=== PATIENT | female | born 1950 | race Two or more races ===

== ENCOUNTER 2016-07-06 15:38 | Emergency (ER) | payer OTHER ==
[~2016-07-06] VITALS: Ht 149.9 cm; Wt 49.9 kg
[2016-07-06 16:20] VITALS: BP 128/99
[2016-07-06] MEDS: ALBUTEROL FS 2.5 MG/3 ML VIAL.NEB CONTNEB ONE (19:10)
[2016-07-06] MEDS: IPRATROPIUM NEB FS 0.5 MG/2.5 ML AMPUL.NEB NEB ONE (19:10)
[2016-07-06] MEDS ORDERED: ALBUTEROL FS 2.5 MG/3 ML VIAL.NEB ONE (19:10)
[2016-07-06] MEDS ORDERED: IPRATROPIUM NEB FS 0.5 MG/2.5 ML AMPUL.NEB ONE (19:10)
[2016-07-06] MEDS ORDERED: DEXAMETHASONE SOD PHOSPHATE 10 MG/ML VIAL ONE (20:37)
[2016-07-06] MEDS: DEXAMETHASONE SOD PHOSPHATE 10 MG/ML VIAL IM ONE (20:42)
== END 2016-07-06 21:01 | disposition home or self-care (01) ==
LOC: ER 15:42
DX: J45.909 Unspecified asthma, uncomplicated (principal)
CPT/HCPCS: 71010; 93005; 94644; 96372; 99285; A4606; J1100; Z7610

== ENCOUNTER 2016-10-27 18:19 | Emergency (ER) | payer OTHER ==
[~2016-10-27] VITALS: Ht 160 cm; Wt 49.9 kg
[2016-10-27 18:26] VITALS: BP 174/98
--- NOTE | 2016-10-27 19:00 | NUR ---
PT MEDICATED ORDERED. RT AT BS FOR BREATHING TX.
[2016-10-27] MEDS ORDERED: predniSONE 20 MG TABLET ONE (19:05)
[2016-10-27] MEDS ORDERED: HYDROCODONE/APAP 10/325MG 1 EA TABLET ONE (19:05)
[2016-10-27] MEDS ORDERED: ALBUTEROL FS 2.5 MG/3 ML VIAL.NEB ONE (19:07)
[2016-10-27] MEDS: ALBUTEROL FS 2.5 MG/3 ML VIAL.NEB NEB ONE (19:08)
[2016-10-27] MEDS: predniSONE 20 MG TABLET PO ONE (19:11)
[2016-10-27] MEDS: HYDROCODONE/APAP 10/325MG 1 EA TABLET PO ONE (19:11)
== END 2016-10-27 20:03 | disposition home or self-care (01) ==
LOC: ER 18:25
DX: M54.5 Low back pain (principal); J45.909 Unspecified asthma, uncomplicated
CPT/HCPCS: 71010-TC; A4606; Z7610

== ENCOUNTER 2016-10-29 11:12 | Emergency (ER) | payer OTHER ==
[~2016-10-29] VITALS: Ht 162.6 cm; Wt 49.9 kg
[2016-10-29 11:23] VITALS: BP 126/81
== END 2016-10-29 11:50 | disposition home or self-care (01) ==
LOC: ER 11:15
DX: R11.2 Nausea with vomiting, unspecified (principal); M54.5 Low back pain; J45.909 Unspecified asthma, uncomplicated
CPT/HCPCS: A4606; Z7610

== ENCOUNTER 2017-07-27 12:45 | Emergency (ER) | payer OTHER ==
[~2017-07-27] VITALS: Ht 147.3 cm; Wt 54.9 kg
--- NOTE | 2017-07-27 13:15 | NUR ---
RT CALLED FOR BREATHING TX ORDERS.
[2017-07-27] MEDS ORDERED: ALBUTEROL FS 2.5 MG/0.5 ML VIAL.NEB ONE (13:21)
[2017-07-27] MEDS ORDERED: ALBUTEROL FS 2.5 MG/0.5 ML VIAL.NEB NEB ONE (13:30)
--- NOTE | 2017-07-27 13:30 | NUR ---
PT ON BREATHING TX.
--- NOTE | 2017-07-27 13:50 | NUR ---
Patient discharged to home in stable condition. Written and verbal after care instructions given. Patient verbalizes understanding of instruction.
[2017-07-27 14:09] VITALS: BP 152/88
== END 2017-07-27 14:12 | disposition home or self-care (01) ==
LOC: ER 12:46
DX: J45.909 Unspecified asthma, uncomplicated (principal); B34.9 Viral infection, unspecified
CPT/HCPCS: 94640; 99283; A4606; Z7610